=== PATIENT | female | born 1985 | race Native Hawaiian/Other Pacific Islander ===

== ENCOUNTER 2017-10-28 08:23 | Inpatient (IN) | payer OTHER ==
[~2017-10-28] VITALS: Ht 152.4 cm; Wt 50.2 kg
[2017-10-28] VITALS (7 sets, daily range): BP systolic 105–134; BP diastolic 65–93; TEMP 98.1–101; Ht 152.4 cm; Wt 50.2 kg
[2017-10-28] MEDS ORDERED: LISI10TA11 PO (08:43)
[2017-10-28 09:04] LABS: PLATELET COUNT 264 K/uL (152-353)
[2017-10-28 09:10] LABS: POTASSIUM 3.5 mmol/L (3.6-5.2)
[2017-10-29 00:22] VITALS: BP 105/68; TEMP 99.7
[2017-10-29 04:00] VITALS: BP 114/72; TEMP 99.5
[2017-10-29 05:44] LABS: PLATELET COUNT 191 K/uL (152-353)
[2017-10-29 06:33] LABS: POTASSIUM 3.6 mmol/L (3.6-5.2)
[2017-10-29 08:00] VITALS: BP 124/85; TEMP 99
[2017-10-29 12:00] VITALS: BP 110/74; TEMP 98.5
[2017-10-29 16:00] VITALS: BP 90/52; TEMP 97.7
[2017-10-29 20:00] VITALS: BP 117/86; TEMP 98
[2017-10-30] VITALS: BP 117/79; TEMP 98.4
[2017-10-30 04:00] VITALS: BP 94/65; TEMP 97.6
[2017-10-30 05:00] LABS: PLATELET COUNT 185 K/uL (152-353)
[2017-10-30 05:32] LABS: POTASSIUM 3.6 mmol/L (3.6-5.2)
[2017-10-30 07:53] VITALS: BP 120/81; TEMP 97.4
[2017-10-30 12:00] VITALS: BP 113/73; TEMP 97.5
[2017-10-30 16:00] VITALS: BP 114/83; TEMP 97.9
[2017-10-30 19:56] VITALS: BP 107/69; TEMP 98.4
[2017-10-31] VITALS: BP 112/76; TEMP 98.4
[2017-10-31 03:48] VITALS: BP 120/87; TEMP 98.5
[2017-10-31 08:00] VITALS: BP 109/78; TEMP 99
== END 2017-10-31 11:05 | disposition home or self-care (01) | DRG 694 ==
LOC: ED 08:23 → MED/SURG 11:44
PROVIDERS: ADMIT Family Medicine
DX: N20.0 Calculus of kidney (principal); N39.0 Urinary tract infection, site not specified; N12 Tubulo-interstitial nephritis, not specified as acute or chronic; B96.20 Unspecified Escherichia coli [E. coli] as the cause of diseases classified elsewhere
CPT/HCPCS: 36415; 80053; 81000; 85027; 87077; 87086; 87088; 87186; 87490; 87590; 96365; 96366; 96367; 96374; 96375; 99284; J0696; J1170; J1885; J1956; J2270; J2405; J3490; Q9963

== ENCOUNTER 2019-01-31 09:08 | Emergency (ER) | payer OTHER ==
[~2019-01-31] VITALS: Ht 152.4 cm; Wt 52.2 kg
[~2019-01-31 09:08] MED LIST: LISI10TA11 PO
[2019-01-31 09:15] VITALS: BP 183/110; TEMP 97.9
== END 2019-01-31 09:34 | disposition home or self-care (01) ==
LOC: ED 09:08
DX: R06.09 Other forms of dyspnea (principal); R00.0 Tachycardia, unspecified
CPT/HCPCS: 99282

== ENCOUNTER 2020-05-21 09:54 | Outpatient (CLI) | payer OTHER | END 2020-05-21 19:12 | disposition home or self-care (01) | LOC: RAD 09:54 | PROVIDERS: ATTEND Registered Nurse | DX: M25.561 Pain in right knee (principal) ==

== ENCOUNTER 2021-03-19 13:05 | Emergency (ER) | payer OTHER ==
[~2021-03-19] VITALS: Ht 152.4 cm; Wt 53.5 kg
[2021-03-19 13:10] VITALS: TEMP 98.6
[2021-03-19 13:50] LABS: PLATELET COUNT 311 K/uL (152-353)
[2021-03-19 13:57] LABS: POTASSIUM 4.2 mmol/L (3.6-5.2)
[2021-03-19 15:41] VITALS: BP 157/98
== END 2021-03-19 15:41 | disposition home or self-care (01) ==
LOC: ED 13:05
PROVIDERS: Family Medicine
DX: K66.0 Peritoneal adhesions (postprocedural) (postinfection) (principal); Z98.890 Other specified postprocedural states
CPT/HCPCS: 36415; 80053; 85027; 96374; 99284; J1885; Q9963

== ENCOUNTER 2021-12-14 20:00 | Emergency (ER) | payer BC ==
[~2021-12-14] VITALS: Ht 152.4 cm; Wt 54.4 kg
[2021-12-14 20:41] LABS: PLATELET COUNT 264 K/uL (152-353)
[2021-12-14 20:49] LABS: POTASSIUM 4.1 mmol/L (3.6-5.2)
[2021-12-14 22:17] VITALS: BP 115/72; TEMP 98
== END 2021-12-14 22:17 | disposition home or self-care (01) ==
LOC: ED 20:00
PROVIDERS: Hospitalist
DX: R10.31 Right lower quadrant pain (principal)
CPT/HCPCS: 36415; 80053; 81002; 81025; 83690; 85027; 96360; 96374; 96375; 99284; J1170; J1885; J2405

== ENCOUNTER 2022-07-01 10:29 | Outpatient (CLI) | payer BC | END 2022-07-01 19:16 | disposition home or self-care (01) | LOC: MAMMO 10:29 | PROVIDERS: ATTEND Registered Nurse | DX: R19.02 Left upper quadrant abdominal swelling, mass and lump (principal); Z12.31 Encounter for screening mammogram for malignant neoplasm of breast ==

== ENCOUNTER 2022-08-11 10:02 | Outpatient (CLI) | payer BC | END 2022-08-11 19:37 | disposition home or self-care (01) | LOC: MAMMO 10:02 | PROVIDERS: ATTEND Registered Nurse | DX: N63.12 Unspecified lump in the right breast, upper inner quadrant (principal) ==

== ENCOUNTER 2022-11-13 08:37 | Emergency (ER) | payer BC ==
[~2022-11-13] VITALS: Ht 152.4 cm; Wt 55.3 kg
[2022-11-13 09:32] LABS: PLATELET COUNT 217 K/uL (152-353)
[2022-11-13 09:42] LABS: POTASSIUM 3.1 mmol/L (3.6-5.2)
[2022-11-13 12:25] VITALS: BP 134/78; TEMP 98.6
== END 2022-11-13 12:30 | disposition home or self-care (01) ==
LOC: ED 08:37
PROVIDERS: Emergency Medicine
DX: F41.9 Anxiety disorder, unspecified (principal); J40 Bronchitis, not specified as acute or chronic
CPT/HCPCS: 36415; 80053; 84484; 85027; 85379; 93005; 96374; 99284; J2060

== ENCOUNTER 2022-12-19 20:23 | Emergency (ER) | payer BC ==
[~2022-12-19] VITALS: Ht 152.4 cm; Wt 54.9 kg
[2022-12-19 20:30] VITALS: TEMP 98.3
[2022-12-19 21:00] VITALS: BP 157/96
[2022-12-19 21:05] LABS: PLATELET COUNT 354 K/uL (152-353)
[2022-12-19 21:06] LABS: POTASSIUM 3.2 mmol/L (3.6-5.2)
== END 2022-12-19 22:01 | disposition home or self-care (01) ==
LOC: ED 20:23
PROVIDERS: Family Medicine
DX: R10.31 Right lower quadrant pain (principal); N20.0 Calculus of kidney; F15.10 Other stimulant abuse, uncomplicated
CPT/HCPCS: 80053; 80307; 81000; 85027; 96361; 96374; 96375; 99284; J0500; J1885; Q9963